=== PATIENT | female | born 2005 | race Caucasian/White ===

== ENCOUNTER 2024-04-30 12:33 | Emergency (ER) | payer OTHER ==
[~2024-04-30] VITALS: Ht 167.6 cm; Wt 93.3 kg
[2024-04-30] MEDS ORDERED: ACET-683 PO (12:41)
[2024-04-30] MEDS ORDERED: FLUO40CA PO (12:41)
[2024-04-30] MEDS ORDERED: LEVO50TA5 PO (12:41)
[2024-04-30] MEDS ORDERED: AMOX875T2 PO (14:53)
[2024-04-30 15:18] VITALS: BP 140/98; TEMP 97.4; O2SAT 98
== END 2024-04-30 15:19 | disposition home or self-care (01) ==
LOC: M ED 12:33
DX: K04.7 Periapical abscess without sinus (principal); Z88.6 Allergy status to analgesic agent

== ENCOUNTER → 2024-12-12 | Outpatient (CLI) | payer OTHER ==
[~2024-12-12] MED LIST: ACET-683 PO; AMOX875T2 PO; FLUO40CA PO; LEVO50TA5 PO
== END ==
LOC: M EKG 13:52
PROVIDERS: ATTEND Student in an Organized Health Care Education/Training Program
DX: R00.2 Palpitations (principal)